=== PATIENT | female | born 1995 | race African-American/Black ===

== ENCOUNTER 2016-03-06 11:55 | Emergency (ER) | payer BC ==
--- NOTE | 2016-03-06 13:57 | UC ---
Complaint Female HPI - History Of Current Complaint Chief Complaint: UCSTDScreening Stated Complaint: PERSONAL Time Seen by Provider: 03/06/16 13:54 Hx Last Menstrual Period: 02/22/16 - Allergies/Home Medications Allergies/Adverse Reactions: Allergies Allergy/AdvReac Type Severity Reaction Status Date / Time No Known Allergies Allergy Verified 03/06/16 12:51 Home Medications: Home Medications NK [No Home Medications Reported] 03/06/16 [History Confirmed 03/06/16] PMH/Surg Hx/FS Hx/Imm Hx - Surgical History Surgical History: None - Social History Alcohol Use: Rare Substance Use Type: None Smoking Status (MU): Never Smoked Tobacco Physical Exam Vital Signs: Initial Vital Signs Temp 98.3 F 03/06/16 12:47 Pulse 108 03/06/16 12:47 Resp 12 03/06/16 12:47 BP 144/96 03/06/16 12:47 Pulse Ox 100 03/06/16 12:47
== END 2016-03-06 14:00 | disposition left against medical advice (07) ==
LOC: UCCORT 11:55
DX: Z20.2 Contact with and (suspected) exposure to infections with a predominantly sexual mode of transmission (principal); Z32.02 Encounter for pregnancy test, result negative; Z53.21 Procedure and treatment not carried out due to patient leaving prior to being seen by health care provider
CPT/HCPCS: 81025